=== PATIENT | female | born 1935 | race Caucasian/White ===

== ENCOUNTER → 2016-10-24 | Outpatient (CLI) | payer OTHER ==
[~2016-10-24] MED LIST: AMLODIPINE-BENA1 CA1 PO; ASPIRIN PO; ASPIRIN81 M1 PO; ASPIRIN81 M2 PO; BACTRIM DS TABL1 TAB PO; BYSTOLIC5 MG PO; CALCIUM + D 6001 TA1 PO; CALCIUM + VITAM1 TAB PO; DISCONTINUED MED; LIPITOR PO; LIPITOR20 MG PO; LISINOPRIL PO; LISINOPRIL20 MG PO; PAIN MED; PRILOSEC20 M1 PO; PYRIDIUM PO; TOPROL XL PO; TRAMADOL HCL50 M2 PO; VITAMIN B12-FO1 EACH PO; VITAMIN D35000 UNI1 PO
--- NOTE | ~2016-10-24 | MY30 ---
[facility] A Service [facility] RADIOLOGY TEXT RESULTS PATIENT: MEI JO LOCATION: [facility] : 33 UNIT #: [id number] AGE: [address]: Jt Zapien MD SEX: F ORDER DR: [id number] [address] [address] [id number] O MR#: [id number] Acc #: [id number] NAME: MEI JO : 1935 SEX: F STUDY DATE/TIME: 10/24/2016 15:25 UNIT: [facility] ROOM: STUDY DESCRIPTION: MY SCREEN MONICA BILAT DIGITAL Attending Physician: Jt Zapien M.D. Referring Physician: Jt Zapien M.D. Ordering Physician: Jt Zapien M.D. Primary Care Physician: Jt Zapien M.D. MEDICAL IMAGING REPORT This report is preliminary unless electronic signature is present. EXAM Bilateral digital screening mammogram with CAD. COMPARISON September 26, 2014, October 16, 2015, September 10, 2013, April 03, 2012, March 21, 2011, November 23, 2009, November 06, 2008, and October 31, 2006, and October 04, 2005. INDICATIONS Breast cancer screening. 80-year asymptomatic female who reports a sister with premenopausal breast cancer and a great aunt with postmenopausal breast cancer. FINDINGS There are scattered fibroglandular densities. There are benign arterial calcifications in both breasts. There are no suspicious findings in either breast. IMPRESSION No mammographic evidence of malignancy. Annual screening mammography is recommend for as long as the patient is in good health ([employer]). Patients over the age of 40 are entered into a reminder system with target due date for the next mammogram. A result letter will also be sent to the patient. BIRADS: 1 Negative Dictated by... [facility] A Service [facility] RADIOLOGY TEXT RESULTS PATIENT: MEI JO LOCATION: [facility] : 33 UNIT #: [id number] AGE: [address]: Jt Zapien MD SEX: F ORDER DR: Andrew Zapien M.D. THIS IS AN ELECTRONICALLY VERIFIED REPORT Andrew Zapien M.D. at 10/27/2016 12:45 PM JENNIFER/rodrigo TD: 10/25/2016 03:27 JOB #: [id number] MEDICAL IMAGING REPORT Page 1 of 1
== END | disposition home or self-care (01) ==
LOC: SMAM 14:50
DX: Z12.31 Encounter for screening mammogram for malignant neoplasm of breast (principal); Z80.3 Family history of malignant neoplasm of breast
CPT/HCPCS: G0202